=== PATIENT | female | born 1985 | race African-American/Black ===

== ENCOUNTER 2018-12-31 20:54 | Emergency (ER) | payer OTHER ==
[~2018-12-31] VITALS: Ht 180.3 cm; Wt 82.0 kg
[2018-12-31 21:26] VITALS: BP 107/79
== END 2019-01-01 00:13 | disposition left against medical advice (07) ==
LOC: ER 20:54
DX: Z53.21 Procedure and treatment not carried out due to patient leaving prior to being seen by health care provider (principal)